=== PATIENT | female | born 2000 | race Hispanic/Latino ===

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

== ENCOUNTER 2023-10-13 12:38 | Emergency (ER) | payer OTHER ==
[2023-10-13 13:21] LABS: Absolute Lymphocytes (CBC) 0.8 K/uL (0.7-4.9); Absolute Monocytes 0.7 K/uL (0.1-1.3); Absolute Neutrophil 13.3 K/uL (1.8-8.0); Basophils % 0.1 % (0-1.3); Eosinophils % 0.2 % (0-4.4); Hematocrit 39.6 % (36.0-45.0); Hemoglobin 13.2 g/dL (12.0-15.0); Lymphocytes % 5.4 % (15.3-44.8); MCH 28.8 pg (27.0-35.0); MCHC 33.4 g/dL (32.0-36.0); MCV 86.4 fL (80-100); MPV 9.1 fL (7.6-11.3); Monocytes % 4.5 % (3.3-12.3); Neutrophils % 89.8 % (41.7-73.7); Platelets 222 thou/uL (152-406); RBC Red Blood Cell Count 4.58 M/uL (3.86-4.86); Red Cell Distribution Width 14.6 % (12.1-15.2)
[2023-10-13 13:22] LABS: Specific Gravity > 1.030 (1.005-1.030)
[2023-10-13 13:23] LABS: Specific Gravity > 1.030 (1.005-1.030); Urine Bacteria None Seen /HPF (<20); Urine Bilirubin NEGATIVE (Negative); Urine Blood Negative (Negative); Urine Clarity Extremely Turbid (Clear); Urine Color Yellow (Yellow); Urine Culture Reflex Order REFLEXED; Urine Glucose NEGATIVE (Negative); Urine Ketones 1+ (Negative); Urine Microscopic Reflex YN ORDER UMIC; Urine Mucus 4+ /HPF (None Seen); Urine Nitrite NEGATIVE (Negative); Urine Protein 1+ (Negative); Urine Urobilinogen 1+ (Normal)
[2023-10-13 13:54] LABS: Anion Gap 10.6 mEq/L (5.0-15.0); BUN Blood Urea Nitrogen 10 mg/dL (7-18); Bicarbonate 26 mEq/L (21-32); Glomerular Filtration Rate 111 ml/min (=/>90); Glucose Level 95 mg/dL (74-106); HCG, Quantitative 139892 mIU/mL (1-3); Potassium 3.6 mEq/L (3.5-5.1); Sodium Level 133 mEq/L (136-145); Troponin High Sensitivity < 3.0 pg/mL (<58.9)
--- NOTE | 2023-10-13 15:15 | RAD REPORT ---
EXAM DESCRIPTION: US - Transvaginal OB - 10/13/2023 1:48 pm CLINICAL HISTORY: with vaginal bleeding COMPARISON: None FINDINGS: The uterus measures 8 x 5 x 7 centimeters. . Gestational sac is present within the uterus measuring 3.9 x 2.1 x 3.3 centimeters. A yolk sac is seen. pole crown-rump length 1.7 centimet ers. Cardiac activity 177 beats per minute. Small subchorionic hemorrhage. 8.3 centimeter cystic mass right adnexal with low level echoes. Blood flow is present within the xi phery. Left ovary normal in size and echotexture. Left adnexal unremarkable Small amount of free fluid IMPRESSION: Single live intrauterine with an estimated gestational age 8 weeks 2 days BELKIS 05/22/2024 8.3 centimeters cystic mass right adnexa may represent a hemorrhagic ovarian cyst or endometrioma. Fo llow-up ultrasound in 2 months recommended for re-evaluation
--- NOTE | 2023-10-13 15:40 | RAD REPORT ---
EXAM DESCRIPTION: Chang Single View10/13/2023 2:01 pm CLINICAL HISTORY: Chest pain COMPARISON: none FINDINGS: The lungs appear clear of acute infiltrate. The heart is normal size IMPRESSION: No acute abnormalities displayed
[2023-10-13 15:54] LABS: Blood Morphology Comment NOT SEEN (NOT SEEN); Platelet Estimate ADEQ; White Blood Cell Scan OK (OK)
--- NOTE | 2023-10-13 16:33 | ER ---
Nurse's Notes [facility] Name: Carrol Panchal Age: 22 yrs Sex: Female : 2000 Arrival Date: 10/13/2023 Time: 12:38 Bed 10 Private MD: Diagnosis: Chest pain, unspecified;Threatened ;Other ovarian cysts Presentation: 10/12 12:48 Chief complaint: Patient states: "I'm almost 8 weeks and started having chest mb9 pain 2 days ago. The pain radiates to my back and stomach. My lungs feel achy.". Coronavirus screen: At this time, the client does not indicate any symptoms associated with coronavirus-19. Ebola Screen: No symptoms or risks identified at this time. Initial Sepsis Screen: Does the patient meet any 2 criteria? No. Patient's initial sepsis screen is negative. Does the patient have a suspected source of infection? No. Patient's initial sepsis screen is negative. Risk Assessment: Do you want to hurt yourself or someone else? Patient reports no desire to harm self or others. Onset of symptoms was October 13, 2023. 12:48 Method Of Arrival: Ambulatory mb9 12:48 Acuity: SANTOS 3 mb9 Triage Assessment: 12:50 General: Appears in no apparent distress. Behavior is calm, cooperative. Pain: mb9 Complains of pain in chest Pain radiates to back and abdomen Pain currently is 8 out of 10 on a pain scale. Quality of pain is described as aching, Pain began 2-3 days ago. Is continuous. EENT: No signs and/or symptoms were reported regarding the EENT system. Neuro: Khalil Agitation-Sedation Scale (RASS): 0 - Alert and Calm Level of Consciousness is awake, alert, obeys commands, Oriented to person, place, time, situation, Appropriate for age. Cardiovascular: Reports chest pain, Patient's skin is warm and dry. Respiratory: Airway is patent Respiratory effort is even, unlabored, Respiratory pattern is regular, symmetrical. GI: Abdomen is flat, non-distended, Bowel sounds present X 4 quads. Abd is soft and non tender X 4 quads. : Reports spotting. Derm: Skin is pink, warm \\T\\ dry. Musculoskeletal: Range of motion: intact in all extremities. Historical: - Allergies: 12:49 No Known Allergies; mb9 - PMHx: 12:49 None; mb9 - PSHx: 12:49 None; mb9 - Immunization history:: Adult Immunizations up to date. - Infectious Disease History:: Denies. - Social history:: Smoking status: Patient denies any tobacco usage or history of. Screenin:23 [facility] ED Fall Risk Assessment (Adult) History of falling in the last 3 months, mb9 including since admission No falls in past 3 months (0 pts) Confusion or Disorientation No (0 pts) Intoxicated or Sedated No (0 pts) Impaired Gait No (0 pts) Mobility Assist Device Used No (0 pt) Altered Elimination No (0 pt) Score/Fall Risk Level 0 - 2 = Low Risk Oriented to surroundings, Maintained a safe environment, Educated pt \\T\\ family on fall prevention, incl call for assistance when getting out of bed. Abuse screen: Denies threats or abuse. Nutritional screening: No deficits noted. Tuberculosis screening: No symptoms or risk factors identified. Assessment: 14:41 General: Appears in no apparent distress. comfortable, well groomed, well developed, kc6 Behavior is calm, cooperative, appropriate for age. Pain: Complains of pain in abdomen and back and chest. Neuro: Level of Consciousness is awake, alert, obeys commands, Oriented to person, place, time, situation, Appropriate for age. Cardiovascular: Reports chest pain. Respiratory: Reports pain with respiration Airway is patent Trachea midline Respiratory effort is even, unlabored, Respiratory pattern is regular, symmetrical, Denies shortness of breath. GI: No signs and/or symptoms were reported involving the gastrointestinal system. : Denies vaginal bleeding. EENT: No signs and/or symptoms were reported regarding the EENT system. Derm: No signs and/or symptoms reported regarding the dermatologic system. Skin is intact, is healthy with good turgor, Skin is pink, warm \\T\\ dry. Musculoskeletal: No signs and/or symptoms reported regarding the musculoskeletal system. Circulation, motion, and sensation intact. Capillary refill < 3 seconds, Range of motion: intact in all extremities. 16:41 Reassessment: Patient appears in no apparent distress at this time. No changes from kc6 previously documented assessment. Patient and/or family updated on plan of care and expected duration. Pain level reassessed. Patient is alert, oriented x 3, equal unlabored respirations, skin warm/dry/pink. Patient states feeling better. Patient states symptoms have improved. Vital Signs: 12:48 BP 134 / 96; Pulse 95; Resp 18; Temp 98.2; Pulse Ox 100% on R/A; Weight 47.63 kg; mb9 Height 5 ft. 1 in. ; Pain 8/10; 14:57 BP 111 / 71; Pulse 71; Resp 18 S; Pulse Ox 100% on R/A; kc6 12:48 Body Mass Index 19.84 (47.63 kg, 154.94 cm) mb9 12:48 Pain Scale: Adult mb9 ED Course: 12:40 Patient arrived in ED. im 12:49 Triage completed. mb9 12:50 Arm band placed on. mb9 12:54 [facility]obbins [facility]C [facility] kb 12:54 Nakul Werner MD is Attending Physician. kb 12:55 EKG done, by ED staff, reviewed by Marium PINEDA. 9 13:12 Abo/rh Typing Sent. bc6 13:12 Test, Urine Sent. bc6 13:12 Quantitative Hcg Sent. bc6 13:12 Urinalysis w/ reflexes Sent. bc6 13:12 Basic Metabolic Panel Sent. bc6 13:12 CBC with Diff Sent. bc6 13:13 Troponin HS Sent. bc6 13:13 Initial lab(s) drawn, by mi, sent to lab. Urine collected: clean catch specimen. bc6 Inserted saline lock: 20 gauge in right antecubital area, using aseptic technique. Blood collected. 13:49 US Transvaginal Ob In Process Unspecified. EDMS 14:03 XRAY Chest (1 view) In Process Unspecified. EDMS 14:23 Bed in low position. Call light in reach. Side rails up X 1. Provided Education on: mb9 press call light if needing anything. Client placed on continuous cardiac and pulse oximetry monitoring. NIBP monitoring applied. Door closed. Noise minimized. Warm blanket given. Pillow given. 14:33 Danika Edward, RN is Primary Nurse. kc6 16:41 No provider procedures requiring assistance completed. IV discontinued, intact, kc6 bleeding controlled, No redness/swelling at site. Pressure dressing applied. Administered Medications: 16:21 Drug: Rho D Immune Globulin IM 300 mcg IM once Route: IM; Site: left deltoid; kc6 16:41 Follow up: Response: No adverse reaction kc6 Medication: 14:23 VIS not applicable for this client. mb9 Outcome: 16:33 Discharge ordered by . navneet 16:41 Discharged to home ambulatory, with significant other, 6 16:41 Condition: good 16:41 Discharge instructions given to patient, significant other, Instructed on discharge instructions, follow up and referral plans. Demonstrated understanding of instructions, follow-up care, 16:41 Patient left the ED. [facility] Signatures: Dispatcher [employer] EDMarium Hess, PHYSICAL SCIENCE TECHNICIAN-C PHYSICAL SCIENCE TECHNICIAN-CkDanika Barker RN RN kc6 Marichuy Samuels RN RN mb9 Margot Porter6 Trish Corcoran
--- NOTE | 2023-10-13 16:33 | EDPHYS ---
Physician Documentation [facility] Name: Carrol Panchal Age: 22 yrs Sex: Female : 2000 Arrival Date: 10/13/2023 Time: 12:38 Bed 10 Private MD: ED Physician Nakul Werner HPI: 10/12 17:11 This 22 yrs old Female presents to ER via Ambulatory with complaints of Chest kb Pain, Back Pain, Abdominal Pain, 8 weeks . 17:11 Pt is a 22 year old female who presents for diffuse chest pain that is worse with kb inspiration, movement and palpation that started 2 days ago. Denies shortness of breath, palpitations. States she has been vomiting over the last several weeks due to . Reports spotting 2 days ago that is now resolved. . Historical: - Allergies: 12:49 No Known Allergies; mb9 - PMHx: 12:49 None; mb9 - PSHx: 12:49 None; mb9 - Immunization history:: Adult Immunizations up to date. - Infectious Disease History:: Denies. - Social history:: Smoking status: Patient denies any tobacco usage or history of. ROS: 16:20 Constitutional: As per HPI kb Exam: 13:56 ECG was reviewed by the Attending Physician. kb 17:10 Constitutional: This is a well developed, well nourished patient who is awake, alert, kb and in no acute distress. Head/Face: Normocephalic, atraumatic. ENT: Moist Mucous membranes Neck: Trachea midline, no thyromegaly or masses palpated, and no cervical lymphadenopathy. Supple, full range of motion without nuchal rigidity, or vertebral point tenderness. No Meningismus. Respiratory: Respirations even and unlabored. No increased work of breathing. Talking in full sentences Abdomen/GI: Soft, non-tender. No distention Back: No spinal tenderness. No costovertebral tenderness. Full range of motion. Skin: Warm, dry with normal turgor. Normal color. MS/ Extremity: Pulses equal, no cyanosis. Neurovascular intact. Full, normal range of motion. Neuro: Awake and alert, GCS 15, oriented to person, place, time, and situation. Moves all extremities. Normal gait. 17:10 Chest/axilla: Inspection: normal, Palpation: tenderness, that is mild, of the anterior aspect of right upper chest, anterior aspect of left upper chest, right breast and left breast, that partially reproduces the patient's complaints, Vital Signs: 12:48 BP 134 / 96; Pulse 95; Resp 18; Temp 98.2; Pulse Ox 100% on R/A; Weight 47.63 kg; mb9 Height 5 ft. 1 in. ; Pain 8/10; 14:57 BP 111 / 71; Pulse 71; Resp 18 S; Pulse Ox 100% on R/A; kc6 12:48 Body Mass Index 19.84 (47.63 kg, 154.94 cm) mb9 12:48 Pain Scale: Adult mb9 MDM: 12:55 Patient medically screened. kb 17:10 Differential diagnosis: acute CA, arrhythmia, chest wall pain, threatened . kb Data reviewed: vital signs, nurses notes. Counseling: I had a detailed discussion with the patient and/or guardian regarding the historical points, exam findings, and any diagnostic results supporting the discharge/admit diagnosis, lab results, radiology results, the need for outpatient follow up, a family practitioner, to return to the emergency department if symptoms worsen or persist or if there are any questions or concerns that arise at home. ED course: HEART score 0. 10/12 12:59 Order name: Abo/rh Typing [facility] 10/12 15:46 Order name: Rh Typing [facility] 10/12 15:46 Order name: Antibody Screen [facility] 10/12 15:47 Order name: Fetalscreen [facility] 10/12 15:48 Order name: Cord Rh type [facility] 10/12 12:59 Order name: Basic Metabolic Panel; Complete Time: 13:56 [facility] 10/12 12:59 Order name: CBC with Diff; Complete Time: 16:05 [facility] 10/12 12:59 Order name: Troponin HS; Complete Time: 13:56 [facility] 10/12 12:59 Order name: Test, Urine; Complete Time: 13:23 [facility] 10/12 12:59 Order name: Quantitative Hcg; Complete Time: 13:56 [facility] 10/12 12:59 Order name: Urinalysis w/ reflexes; Complete Time: 13:25 [facility] 10/12 13:24 Order name: CBC Smear Scan; Complete Time: 16:05 [facility] 10/12 13:25 Order name: Urine Culture [facility] 06/04 15:46 Order name: Rhogam EDSD 10/12 12:59 Order name: XRAY Chest (1 view); Complete Time: 15:41 9 10/12 12:59 Order name: US Transvaginal Ob; Complete Time: 15:25 mb9 10/12 12:57 Order name: EKG - Nurse/Tech; Complete Time: 12:57 mb9 10/12 12:59 Order name: IV Saline Lock; Complete Time: 13:12 9 10/12 12:59 Order name: Labs collected and sent; Complete Time: 13:12 mb9 10/12 12:59 Order name: NPO; Complete Time: 13:12 mb9 EC:56 Rate is 75 beats/min. Rhythm is regular. QRS [place] is Normal. MT interval is normal at kb 132 msec. QRS interval is normal at 76 msec. QT interval is normal at 415 msec. Administered Medications: 16:21 Drug: Rho D Immune Globulin IM 300 mcg IM once Route: IM; Site: left deltoid; [facility] 16:41 Follow up: Response: No adverse reaction 6 Disposition Summary: 10/13/23 16:33 Discharge Ordered Notes: Location: Home kb Condition: Stable kb Diagnosis - Chest pain, unspecified kb - Threatened kb - Other ovarian cysts kb Followup: kb - With: Emergency Department - When: As needed - Reason: Worsening of condition Followup: kb - With: Private Physician - When: 2 - 3 days - Reason: Recheck today's complaints, Continuance of care, Re-evaluation by your physician Discharge Instructions: - Discharge Summary Sheet kb - Nonspecific Chest Pain, Adult, [id number] kb - Threatened Miscarriage, [id number] kb - Vaginal Bleeding During , First Trimester, [id number] kb Forms: - Medication Reconciliation Form kb - Antibiotic Education kb - Prescription Opioid Use kb - Patient Portal Instructions kb - Leadership Thank You Letter kb Signatures: Dispatcher [employer] EDMarium Hess, JANICE-Hans CAMACHO-Danika Sood, RN RN kc6 Marichuy Samuels RN RN mb9 Corrections: (The following items were deleted from the chart) 12:59 12:59 Chest Single View+RAD.RAD.BRZ ordered. EDSD EDSD 12:59 12:59 Transvaginal Ob+US.RAD.BRZ ordered. EDSD EDMS 15 15:33 RHOGAM+BB.LAB.BRZ ordered. EDMS EDMS 15:35 Rh Typing ordered. EDMS EDMS 15:35 Antibody Screen ordered. EDMS EDMS 15:35 Fetalscreen ordered. EDMS EDMS 15:35 Cord Rh type ordered. EDMS EDMS
[2023-10-13 17:30] VITALS: BP 111/71; TEMP 98.2; O2SAT 100
--- NOTE | 2023-10-14 16:35 | EKG ---
Test Date: 2023-10-13 Test Time: 12:54:59 Aircraft Engine Mechanic: MB MEASUREMENT RESULTS: Intervals: Rate: 75 KS: 132 QRSD: 76 QT: 372 QTc: 415 [place]: P: 67 KS: 132 QRS: 88 T: 14 INTERPRETIVE STATEMENTS: Normal sinus rhythm with sinus arrhythmia Normal ECG No previous ECG available for comparison Electronically Signed On 10-14-23 16:32:55 CDT by Venkata Gonzales
== END 2023-10-13 16:41 | disposition home or self-care (01) ==
LOC: ER 12:38
DX: O20.0 Threatened abortion (principal); O34.81 Maternal care for other abnormalities of pelvic organs, first trimester; N83.299 Other ovarian cyst, unspecified side; R07.9 Chest pain, unspecified; Z3A.08 8 weeks gestation of pregnancy
CPT/HCPCS: 93005; 87088; 85025; 81001; 87086; 80048; 36415; 86900; 86850; 81025; 86901 ×2; 84702; 84484; 71045; 76817; 96372; 99284; J2790